=== PATIENT | male | born 1970 ===

== ENCOUNTER 2019-06-18 02:02 | Emergency (ER) | payer OTHER ==
[~2019-06-18] VITALS: Ht 167.6 cm; Wt 99.8 kg
[2019-06-18] MEDS ORDERED: Atarax10 MG PO (02:16)
[2019-06-18] MEDS ORDERED: Norco 10-325 T1 EACH PO (09:03)
== END 2019-06-18 09:52 | disposition home or self-care (01) ==
LOC: ER 02:02
DX: S82.852A Displaced trimalleolar fracture of left lower leg, initial encounter for closed fracture (principal); F41.9 Anxiety disorder, unspecified; F43.10 Post-traumatic stress disorder, unspecified; X50.1XXA Overexertion from prolonged static or awkward postures, initial encounter
CPT/HCPCS: 27818; 73600; 73610; 76000; 96374-59; 96375-59; 96376-59; 99152; 99284-25; J1170; J2405; J2704; J7030